=== PATIENT | female | born 1985 | race Caucasian/White ===

== ENCOUNTER 2016-05-02 10:48 | Emergency (ER) | payer MEDICAID ==
[2016-05-02] MEDS ORDERED: OPTIRAY 350 100 ML VIAL HMH IV ONE (10:49)
[2016-05-02] MEDS ORDERED: MORPHINE 4 MG/ML SYR ONE (11:53)
[2016-05-02] MEDS ORDERED: ONDANSETRON 4 MG VIAL ONE (11:53)
[2016-05-02] MEDS ORDERED: DILAUDID 1 MG/ML AMP ONE ×3 (12:34→16:49)
[2016-05-02] MEDS ORDERED: CEFTRIAXONE 1 GM VIAL ONE (12:47)
[2016-05-02] MEDS ORDERED: SODIUM CHLORIDE 0.9% 100 ML IV ONE (12:47)
[2016-05-02] MEDS ORDERED: LORAZEPAM 2 MG/ML VIAL ONE (13:27)
[2016-05-02] MEDS ORDERED: DICYCLOMINE 20MG/2ML VIAL IM ONE (15:09)
== END 2016-05-02 18:05 | disposition home or self-care (01) ==
LOC: ER 10:48
CPT/HCPCS: 36415; 74177; 76830; 80053; 81001; 83690; 84703; 85025; 87088; 87491; 87591; 87800; 96365; 96372; 96375; 96376